=== PATIENT | male | born 1980 | race Caucasian/White ===

== ENCOUNTER 2017-07-15 01:16 | Emergency (ER) | payer MEDICAID ==
[2017-07-15] MEDS ORDERED: Acetaminophen 325 MG Tab PO ONE (01:45)
[2017-07-15] MEDS ORDERED: Lidocaine 1% 10 ML MDV INJECT ONE (02:00)
[2017-07-15] MEDS ORDERED: Diphtheria,Pertussis(Acell),Tetanus Vaccine 0.5 ML SDV IM ONE (02:00)
[2017-07-15] MEDS ORDERED: Lidocaine 1% 50 ML MDV ONE (02:11)
--- NOTE | 2017-07-15 02:51 | EDM.PDOC ---
ED HPI GENERAL MEDICAL PROBLEM - General Chief Complaint: Laceration Stated Complaint: [facility] Time Seen by Provider: 07/15/17 01:22 - History of Present Illness INITIAL COMMENTS - FREE TEXT/NARRATIVE: 37-year-old male brought in by EMS with a laceration to his right index finger. The patient cut his hand on some glass from a broken beer bottle. Other than the laceration to his right index finger patient denies any other injuries. The patient is quite intoxicated but otherwise cooperative. This occurred about 30 minutes prior to arrival. Patient denies any other injuries. Past medical history is unremarkable. Last tetanus shot unknown. - Related Data Allergies Allergy/AdvReac Type Severity Reaction Status Date / Time No Known Allergies Allergy Verified 07/15/17 01:26 Home Meds: Home Meds . [No Known Home Meds] 07/15/17 [History] Past Medical History - Past Health History Medical/Surgical History: Denies Medical/Surgical History Social & Family History - Family History Family Medical History: Noncontributory - Tobacco Use Smoking Status *Q: Current Every Day Smoker Years of Tobacco use: 20 Packs/Tins Daily: 1 - Recreational Drug Use Recreational Drug Use: No ED ROS GENERAL - Review of Systems Review Of Systems: See Below Constitutional: Reports: No Symptoms HEENT: Reports: No Symptoms Respiratory: Reports: No Symptoms Cardiovascular: Reports: No Symptoms GI/Abdominal: Reports: No Symptoms Neurological: Reports: No Symptoms ED EXAM, SKIN/RASH Exam: See Below Exam Limited By: Other (Patient is intoxicated but cooperative) General Appearance: Alert, No Apparent Distress Head: Atraumatic, Normocephalic Neck: Normal Inspection, Supple, Non-Tender, Full Range of Motion Respiratory/Chest: No Respiratory Distress, Lungs Clear, Normal Breath Sounds Cardiovascular: Regular Rate, Rhythm, No Edema, No Murmur Extremities: Other (Patient has a couple of transverse lacerations over his proximal interphalangeal joint of his right index finger. Neurovascular status distally this appears to be intact extensor function is entirely within normal limits at the metacarpophalangeal joint the proximal interphalangeal joint and the distal interphalangeal joint) Neurological: Alert, Oriented, Normal Cognition, Other (He is intoxicated but cooperative) ED SKIN PROCEDURES - Laceration/Wound Repair Right Finger Lac/Wound length In cm: 3.2 (Right index finger over the proximal interphalangeal joint) Appearance: Stellate Distal NVT: Neuro & Vascular Intact Anesthetic Type: Digital Local Anesthesia - Lidocaine (Xylocaine): 1% Plain Local Anesthetic Volume: 3cc Skin Prep: Saline Exploration/Debridement/Repair: Wound Explored, In a Bloodless Field, Explored to Base, Minimal Debridement Suture Size: 4-0 # of Sutures: 8 Tetanus Status Addressed: Yes (This was updated) Complications: No Progress/Comments: Patient had a laceration over his proximal interphalangeal joint of his right index finger. Basically had to transverse lacerations to came together on the ulnar aspect of the joint with a [place] the connected the 2 with some superficial nonviable skin this was divided wound margins were then approximated using a total of 8 simple sutures of 4-0 nylon this healed with good wound approximation patient had intact tendon function before and after closure. His finger is splinted. Course - Vital Signs Last Recorded V/S: Last Vital Signs Temp Pulse 83 07/15/17 01:21 Resp 16 07/15/17 01:21 BP 132/80 07/15/17 01:21 Pulse Ox 98 07/15/17 01:21 - Orders/Labs/Meds Orders: Active Orders 24 hr Category Date Time Status Vaccines to be Administered [RC] PER UNIT ROUTINE Care 07/15/17 02:01 Active Meds: Medications Discontinued Medications Generic Name Dose Route Start Last Admin Trade Name Mayra PRN Reason Stop Dose Admin Acetaminophen 650 mg 07/15/17 01:45 07/15/17 01:49 Tylenol PO 07/15/17 01:46 650 mg ONETIME ONE Administration Diphtheria/Tetanus/Acell Pertussis 0.5 ml 07/15/17 02:00 07/15/17 02:15 Adacel IM 07/15/17 02:01 0.5 ml .ONCE ONE Administration Lidocaine HCl 10 ml 07/15/17 02:00 07/15/17 02:16 Xylocaine 1% INJECT 07/15/17 02:01 10 ml ONETIME ONE Administration Lidocaine HCl Confirm 07/15/17 02:11 Xylocaine 1% Administered 07/15/17 02:12 Dose 50 ml .ROUTE .STK-MED ONE Departure - Departure Time of Disposition: 02:51 Disposition: Home, Self-Care 01 Clinical Impression: Laceration of right index finger - Discharge Information Forms: ED Department Discharge Additional Instructions: Return to the emergency room with any questions problems worsening symptoms. Suture removal in 12 days. Wear the splint for 7 days you may remove the splint a couple of times a day and do gentle range of motion of your finger as we discussed. Seek immediate medical attention with excessive redness or swelling of the finger. Keep the finger completely clean and dry for the next 24 hours after 24 hours you can let water gently run over the sutures for only a few seconds then gently dab dry no scrubbing. - My Orders Last 24 Hours: My Active Orders 07/15/17 02:01 Vaccines to be Administered [RC] PER UNIT ROUTINE - Assessment/Plan Last 24 Hours: My Active Orders 07/15/17 02:01 Vaccines to be Administered [RC] PER UNIT ROUTINE
== END 2017-07-15 03:08 | disposition home or self-care (01) ==
LOC: JD.ED 01:16
DX: S61.210A Laceration without foreign body of right index finger without damage to nail, initial encounter (principal); F17.210 Nicotine dependence, cigarettes, uncomplicated; Z23 Encounter for immunization; W25.XXXA Contact with sharp glass, initial encounter
CPT/HCPCS: 12002; 90471; 90715; 99283; A9270; 12041